=== PATIENT | male | born 1985 ===

== ENCOUNTER 2022-08-20 04:17 | Day surgery (SDC) | payer OTHER ==
[2022-08-18 16:05] VITALS: BMI 49.0
[2022-08-20 10:20] VITALS: BP 130/83; PULSE 82; RESP 20; TEMP 97.5
[2022-08-20] MEDS ORDERED: HYDROmorphone HCL 2 MG TABLET PO ONE (12:20)
== END 2022-08-20 16:30 | disposition home or self-care (01) ==
LOC: JASU-SURG 04:17
PROVIDERS: ATTEND Neurological Surgery
DX: Z53.8 Procedure and treatment not carried out for other reasons (principal)

== ENCOUNTER 2022-09-04 04:04 | Inpatient (IN) | payer OTHER ==
[2022-09-02 18:02] VITALS: BMI 48.7
[2022-09-04] MEDS ORDERED: MIDAZOLAM HCL 2 MG/2 ML SINGLE DOSE VIAL ONE (08:41)
[2022-09-04] MEDS ORDERED: KETAMINE HCL 200 MG/20 ML VIAL ONE (08:44)
[2022-09-04] MEDS ORDERED: PROPOFOL 20 ML ONE ×2 (08:52→10:50)
[2022-09-04] MEDS ORDERED: ROCURONIUM BROMIDE 50 MG/5 ML SYRINGE ONE (08:53)
[2022-09-04] MEDS ORDERED: ceFAZolin SODIUM 1 GM VIAL IVPB ONE (09:18)
[2022-09-04] MEDS ORDERED: ceFAZolin SODIUM 1 GM VIAL ONE (09:40)
[2022-09-04] MEDS ORDERED: GLYCOPYRROLATE 0.2 MG/1 ML VIAL ONE ×4 (09:57→09:58)
[2022-09-04] MEDS ORDERED: NEOSTIGMINE METHYLSULFATE 0.5 MG/1 ML - 10 ML MDV ONE (09:57)
[2022-09-04] MEDS ORDERED: ONDANSETRON 4 MG/2 ML VIAL IVPUSH PRN (11:27)
[2022-09-04] MEDS ORDERED: ACETAMINOPHEN 1000 MG/100 ML BAG IVPB ONE (11:28)
[2022-09-04] MEDS ORDERED: LACTATED RINGERS SOLUTION 1,000 ML IV SCH (11:30)
[2022-09-04] MEDS ORDERED: ACETAMINOPHEN INJECTION 100 ML IVPB ONE (11:42)
[2022-09-04] MEDS ORDERED: HYDROmorphone HCl 2 MG/ML VIAL ONE (14:10)
[2022-09-04] MEDS: HYDROmorphone HCL CARPU-JECT 2 MG/1 ML DISP.SYRIN IVPUSH SCH ×2 (14:11→15:05)
[2022-09-04] MEDS: HYDROmorphone HCl 2 MG/ML VIAL IVPUSH SCH ×2 (14:26→14:40)
[2022-09-04] MEDS ORDERED: oxyCODONE HCL 5 MG TABLET PO PRN ×3 (14:28→16:15)
[2022-09-04 16:46] VITALS: RESP 20
[2022-09-04] MEDS: oxyCODONE HCL 5 MG TABLET PO PRN ×2 (16:46→19:54)
[2022-09-04] MEDS: PREGABALIN 75 MG CAPSULE PO SCH (21:46)
[2022-09-04] MEDS: METHOCARBAMOL 500 MG TABLET PO SCH (21:46)
[2022-09-04] MEDS ORDERED: LAMOTRIGINE 100 MG PO SCH (22:00)
[2022-09-05] MEDS: oxyCODONE HCL 5 MG TABLET PO PRN ×3 (02:17→11:05)
[2022-09-05] MEDS: METHOCARBAMOL 500 MG TABLET PO SCH ×2 (05:38→13:26)
[2022-09-05] MEDS: PREGABALIN 75 MG CAPSULE PO SCH ×2 (05:38→13:26)
[2022-09-05 07:34] VITALS: TEMP 98.4
[2022-09-05] MEDS ORDERED: ARIPiprazole 15 MG TABLET PO SCH (10:00)
[2022-09-05 10:18] LABS: BASO % 0.5 % (0-2.0); EOS % 0.4 % (0-4.5); HEMATOCRIT 43.6 % (35.4-49); HEMOGLOBIN 14.3 GM/dL (11.7-16.9); LYMPH % 16.1 % (8-40); MCH 25.9 pg (25.7-33.7); MCHC 32.9 g/dl (32.0-35.9); MEAN CELL VOLUME 78.8 fl (80-96); MEAN PLT VOLUME 8.9 fl (7.5-11.1); PLATELET COUNT 259 10^3/uL (134-434); RBC 5.54 M/mm3 (4.00-5.60); RDW 14.6 % (11.9-15.9)
[2022-09-05 10:47] LABS: ALBUMIN 3.3 g/dl (3.4-5.0); BLOOD UREA NITROGEN 14.2 mg/dL (7-18); CALCIUM 8.5 mg/dL (8.5-10.1)
[2022-09-05 10:51] LABS: BILIRUBIN,TOTAL 0.7 mg/dL (0.2-1); CREATININE 0.8 mg/dL (0.55-1.3); TOT PROT 6.7 g/dl (6.4-8.2)
[2022-09-05 15:59] VITALS: BP 154/77; PULSE 84
[2022-09-05] MEDS ORDERED: oxyCODONE HCL 5 MG TABLET PO ONE (16:19)
== END 2022-09-05 17:23 | disposition home or self-care (01) | DRG 791 ==
LOC: JASUSAT 04:04 → J8W 16:11 → JASUSAT 16:41
PROVIDERS: ADMIT Neurological Surgery; ATTEND Neurological Surgery
PROC: 0JPT0MZ Removal of Stimulator Generator from Trunk Subcutaneous Tissue and Fascia, Open Approach (ICD-10-PCS; 2022-09-04)
PROC: 00UT0JZ Supplement Spinal Meninges with Synthetic Substitute, Open Approach (ICD-10-PCS; 2022-09-04)
PROC: 00PU0MZ Removal of Neurostimulator Lead from Spinal Canal, Open Approach (ICD-10-PCS; principal; 2022-09-04 08:30)
DX: T85.890A Other specified complication of nervous system prosthetic devices, implants and grafts, initial encounter (principal); G96.09 Other spinal cerebrospinal fluid leak; M96.0 Pseudarthrosis after fusion or arthrodesis; M54.9 Dorsalgia, unspecified; R20.2 Paresthesia of skin; Y83.8 Other surgical procedures as the cause of abnormal reaction of the patient, or of later complication, without mention of misadventure at the time of the procedure; E66.9 Obesity, unspecified; M54.16 Radiculopathy, lumbar region; Z86.718 Personal history of other venous thrombosis and embolism; Z79.01 Long term (current) use of anticoagulants; F17.210 Nicotine dependence, cigarettes, uncomplicated; Z68.42 Body mass index [BMI] 45.0-49.9, adult
CPT/HCPCS: 36415; 76000-TC-FY; 80053; 85025; 86850; 86900; 86901; 88300-TC; 94760; 97116-GP; 97162-GP